=== PATIENT | male | born 1970 | race African-American/Black ===

== ENCOUNTER 2016-05-15 16:22 | Emergency (ER) | payer OTHER ==
--- NOTE | 2016-05-15 17:25 | PDOC ---
Rapid Medical Evaluation Chief Complaint: Pain Time Seen by Provider: 05/15/16 17:21 Medical Evaluation: 05/15/16 17:22 known herniation of lumbar spine- L4,5 diagnosed years ago, last night lost feeling in 3,4,5toes of right foot/heel.. no recent trauma/.fevers I have performed a brief in-person evaluation of this patient. The patient presents with a chief complaint of: Pertinent physical exam findings: I have ordered the following: The patient will proceed to the ED for further evaluation . 05/15/16 17:23
[2016-05-15 17:26] VITALS: TEMP 98.2; BMI 33.9
[2016-05-15] MEDS ORDERED: OXYCODONE/APAP 5/325MG COMBO TABLET PO ONE (20:06)
--- NOTE | 2016-05-15 20:10 | PDOC ---
History of Present Illness - General Chief Complaint: Pain Stated Complaint: NUMBNESS Time Seen by Provider: 05/15/16 17:21 - History of Present Illness Initial Comments: 05/15/16 20:06 CHIEF COMPLAINT: HISTORY OF PRESENT ILLNESS: 45 yo M with hx of herniated disc at L4/L5 presents to ED with worsening back pain. Patient states his pain "travels" - in Feb-Mar , the pain was in his right upper back, which then moved to the left side of his back, and now he is having a lot of pain to his left leg down to his foot. He has been taking ibuprofen and Meloxicam, was recently prescribed oxycodone, but has not taken any of it. He denies any loss of bowel or bladder function. No recent travel or sick contacts. PAST MEDICAL HISTORY: Denies past medical history FAMILY HISTORY: Denies SOCIAL HISTORY: Denies tobacco, alcohol, illicit drug use. SURGICAL HISTORY: Denies ALLERGIES: No known drug allergies REVIEW OF SYSTEMS General/Constitutional: Denies fever or chills. Denies weakness, weight change. HEENT: Denies change in vision. Denies ear pain or discharge. Denies sore throat. Cardiovascular: Denies chest pain or shortness of breath. Respiratory: Denies cough, wheezing, or hemoptysis. Gastrointestinal: Denies nausea, vomiting, diarrhea or constipation. Denies rectal bleeding. Genitourinary: Denies dysuria, frequency, or change in urination. Musculoskeletal: Pain to lower back, radiating down R leg. Skin and breasts: Denies rash or easy bruising. Neurologic: Denies headache, vertigo, loss of consciousness, or loss of sensation. PHYSICAL EXAM General Appearance: Uncomfortable-appearing, appropriately dressed. HEENT: EOMI, PERRLA, normal ENT inspection, normal voice, TMs normal, pharynx normal. No conjunctival pallor. No photophobia, scleral icterus. Neck: No tenderness to cervical spine. Supple. Trachea midline. No tenderness, rigidity, carotid bruit, stridor, lymphadenopathy, or thyromegaly. Respiratory/Chest: Lungs CTAB. Cardiovascular: RRR. S1, S2. Vascular Pulses: Dorsalis-Pedis (R): 2+, Dorsalis-Pedis (L): 2+ Gastrointestinal/Abdominal: Normal bowel sounds. Abdomen soft, non-distended. No tenderness or rebound tenderness. No organomegaly, pulsatile mass, guarding , hernia, hepatomegaly, splenomegaly. Patient refused rectal exam, unable to assess rectal tone. Musculoskeletal/Extremities: Tenderness to right lower back. No saddle anesthesia. Normal inspection. FROM of all extremities, normal capillary refill. Pelvis Stable. No CVA tenderness. No tenderness to extremities, pedal edema, swelling, erythema or deformity. Integumentary: Appropriate color, dry, warm. No cyanosis, erythema, jaundice or rash Neurologic: business development coordinator II-XII intact. Fully oriented, alert. Appropriate mood/affect. Motor strength 5/5. No appreciable EOM palsy, facial droop or sensory deficit. Past History - Past Medical History Allergies/Adverse Reactions: Allergies Allergy/AdvReac Type Severity Reaction Status Date / Time No Known Allergies Allergy Verified 05/15/16 17:26 Home Medications: Ambulatory Orders Diclofenac Sodium 75 mg PO BID #14 tablet. 05/15/16 - Psycho/Social/Smoking Cessation Hx Anxiety: No Suicidal Ideation: No Smoking History: Never smoked Have you smoked in the past 12 months: No Information on smoking cessation initiated: No Hx Alcohol Use: No Drug/Substance Use Hx: No Substance Use Type: None *Physical Exam - Vital Signs Last Vital Signs Temp Pulse Resp BP Pulse Ox 98.2 F 82 18 143/85 98 05/15/16 17:23 05/15/16 17:23 05/15/16 17:23 05/15/16 17:23 05/15/16 17:23 Medical Decision Making - Medical Decision Making 05/16/16 04:50 45 yo M with hx of herniated disc at L4/L5 presents to ED with worsening back pain. -2 tab Percocet -60 mg Toradol IM Patient reassessed; states his leg is feeling much better. -75 mg Diclofenac bid Advised patient to take medication as prescribed and follow up with orthopedist tomorrow; referral provided. Advised patient of signs and symptoms for return to ER; patient verbalized understanding and agrees to plan. *DC/Admit/Observation/Transfer Diagnosis at time of Disposition: Sciatic leg pain - Discharge Dispostion Disposition: HOME Condition at time of disposition: Stable Admit: No - Prescriptions Prescriptions: Diclofenac Sodium 75 mg PO BID #14 tablet.dr - Referrals Referrals: STAFF,NOT ON [Primary Care Provider] - Nestor Haskins MD [Staff Physician] - - Patient Instructions Printed Discharge Instructions: DI for Back Pain With Sciatica Additional Instructions: As discussed, please take the medication prescribed today as directed and STOP taking ibuprofen. You may take this with the oxycodone that was prescribed by your pain management doctor. As discussed, you must follow up with orthopedics this week (referral provided). Remember, if you experience any loss of sensation to your thighs, loss of bowerl or bladder function, or develop vomiting or severe intractable pain, please return to the ER immediately.
[2016-05-15] MEDS ORDERED: KETOROLAC TROMETHAMINE 60 MG/2 ML VIAL IM ONE (20:16)
[2016-05-15] MEDS ORDERED: OXYCODONE/APAP 5/325MG COMBO TABLET ONE (21:05)
[2016-05-15] MEDS ORDERED: KETOROLAC TROMETHAMINE 60 MG/2 ML VIAL ONE (21:06)
[2016-05-15 22:31] VITALS: BP 138/79; PULSE 85
== END 2016-05-15 22:32 | disposition home or self-care (01) ==
LOC: JER 16:22
PROC: 3E0233Z Introduction of Anti-inflammatory into Muscle, Percutaneous Approach (ICD-10-PCS; principal; 2016-05-15)
DX: M54.30 Sciatica, unspecified side (principal); M51.9 Unspecified thoracic, thoracolumbar and lumbosacral intervertebral disc disorder
CPT/HCPCS: 99284-25